=== PATIENT | male | born 1955 | race Caucasian/White ===

== ENCOUNTER 2017-03-26 06:24 | Day surgery (SDC) | payer OTHER ==
[~2017-03-26] VITALS: Ht 180.3 cm; Wt 152.0 kg
[~2017-03-26 06:24] MED LIST: AMARYL4 MG PO; AMLODIPINE BESY10 MG PO; ASPIRIN81 M1 PO; BENAZEPRIL-HCT1 EAC2 PO; CIPRO500 MG PO; FLAGYL500 MG PO; FUROSEMIDE40 MG PO; GLIMEPIRIDE2 MG PO; HUMULIN R500 UNIT/1 SC; JANUVIA100 MG PO; LASIX40 MG PO; LEVEMIR FL100 UNITS/ SC; LIPITOR40 MG PO; LOTENSIN40 MG PO; LOW DOSE ASPIRI81 M1 PO; LYRICA75 MG PO; MULTIPLE VITAM1 EACH PO; NORVASC5 MG PO; PEPTO BISMOL262 MG PO; PERCOCET 5/31 TABLET PO; PROTONIX40 MG PO; TESTOSTERO200 MG/11 IM; TESTOSTERONE 100 MG IM; VALIUM2 MG PO; VITAMIN B122500 MCG PO
[2017-03-26 07:26] LABS: POINT-OF-CARE METER ID UU13113694
[2017-03-26] MEDS ORDERED: AMARYL2 MG PO (07:26)
[2017-03-26] MEDS ORDERED: OPANA ER10 MG PO (07:27)
[2017-03-26 07:32] VITALS: BP 169/72
[2017-03-26 09:50] LABS: POINT-OF-CARE METER ID UU13113675
[2017-03-26 10:26] VITALS: BP 153/86
[2017-03-26 11:24] VITALS: BP 131/68
== END 2017-03-26 11:35 | disposition home or self-care (01) ==
LOC: SDC
PROVIDERS: Podiatrist Foot & Ankle Surgery
PROC: 0QBQ0ZZ Excision of Right Toe Phalanx, Open Approach (ICD-10-PCS; principal; 2017-03-26)
DX: M89.371 Hypertrophy of bone, right ankle and foot (principal); E11.621 Type 2 diabetes mellitus with foot ulcer; L97.511 Non-pressure chronic ulcer of other part of right foot limited to breakdown of skin; E11.40 Type 2 diabetes mellitus with diabetic neuropathy, unspecified; E11.65 Type 2 diabetes mellitus with hyperglycemia; E66.01 Morbid (severe) obesity due to excess calories; Z68.42 Body mass index [BMI] 45.0-49.9, adult; I10 Essential (primary) hypertension; E11.319 Type 2 diabetes mellitus with unspecified diabetic retinopathy without macular edema; G47.33 Obstructive sleep apnea (adult) (pediatric); K21.9 Gastro-esophageal reflux disease without esophagitis; E78.00 Pure hypercholesterolemia, unspecified; Z79.4 Long term (current) use of insulin; Z87.891 Personal history of nicotine dependence; Z79.82 Long term (current) use of aspirin; Z82.62 Family history of osteoporosis; Z83.3 Family history of diabetes mellitus
CPT/HCPCS: 82948; 87070; 87075; 87205; J0131; J0690; J1100; J1885; J2250; J2405; J3010; S0020

== ENCOUNTER → 2017-09-28 | Outpatient (CLI) | payer OTHER ==
[~2017-09-28] VITALS: Ht 180.3 cm; Wt 155.5 kg
[~2017-09-28] MED LIST changes: +AMARYL2 MG PO; +FUROSEMIDE20 MG PO; +LYRICA100 MG PO; +OPANA ER10 MG PO
== END | disposition home or self-care (01) ==
LOC: AMB 09:30
PROVIDERS: Internal Medicine
DX: R15.9 Full incontinence of feces (principal); D12.2 Benign neoplasm of ascending colon; D12.3 Benign neoplasm of transverse colon; D12.5 Benign neoplasm of sigmoid colon; K62.1 Rectal polyp; K64.8 Other hemorrhoids; I10 Essential (primary) hypertension; E11.9 Type 2 diabetes mellitus without complications; M79.1 Myalgia; K21.9 Gastro-esophageal reflux disease without esophagitis; J45.909 Unspecified asthma, uncomplicated; G47.30 Sleep apnea, unspecified; Z87.891 Personal history of nicotine dependence; K58.9 Irritable bowel syndrome, unspecified; Z79.84 Long term (current) use of oral hypoglycemic drugs; Z79.82 Long term (current) use of aspirin; Z88.8 Allergy status to other drugs, medicaments and biological substances; Z91.018 Allergy to other foods
CPT/HCPCS: 82948; 88305; 93005; J2250; J3010

== ENCOUNTER 2017-12-04 09:28 | Emergency (ER) | payer OTHER ==
[~2017-12-04] VITALS: Ht 180.3 cm; Wt 160.9 kg
[2017-12-04 12:47] LABS: HEMATOCRIT 43.2 % (38.0-50.0); HEMOGLOBIN 15.1 G/DL (12.5-16.6); MCV 88.7 FL (86-99); PLATELET COUNT 203 K/uL (156-360); RBC DIS.WIDTH-SD 42.2 % (39-53); RED BLOOD COUNT 4.87 M/uL (4.00-5.50); WHITE BLOOD COUNT 8.8 K/uL (4.1-10.2)
[2017-12-04 12:55] LABS: CHLORIDE 104 mEq/L (99-109); POTASSIUM 4.2 mEq/L (3.7-5.4); SODIUM 141 mEq/L (136-147)
[2017-12-04 12:56] LABS: GLUCOSE 207 mg/dL (70-99)
[2017-12-04 13:00] LABS: CREATININE 0.8 mg/dL (0.6-1.3); GFR ESTIMATE (CALCULATED) > 59 mL/min/ (58.99-99999)
[2017-12-04 13:01] LABS: UREA NITROGEN (BUN) 15 mg/dL (9-23)
[2017-12-04] MEDS ORDERED: LASIX20 MG PO (13:22)
[2017-12-04 13:40] VITALS: BP 184/82
== END 2017-12-04 13:40 | disposition home or self-care (01) ==
LOC: EME 09:28
PROVIDERS: Emergency Medicine
DX: R60.0 Localized edema (principal); E11.65 Type 2 diabetes mellitus with hyperglycemia; J45.909 Unspecified asthma, uncomplicated; F32.9 Major depressive disorder, single episode, unspecified; Z79.82 Long term (current) use of aspirin; Z79.4 Long term (current) use of insulin; Z98.890 Other specified postprocedural states; Z87.09 Personal history of other diseases of the respiratory system; Z88.8 Allergy status to other drugs, medicaments and biological substances
CPT/HCPCS: 80048; 85027; 99281; 99284

== ENCOUNTER → 2017-12-17 | Outpatient (CLI) | payer OTHER ==
[~2017-12-17] MED LIST changes: +LASIX20 MG PO
== END | disposition home or self-care (01) ==
LOC: EKG 12:38
DX: I51.7 Cardiomegaly (principal); I07.1 Rheumatic tricuspid insufficiency; I27.20 Pulmonary hypertension, unspecified
CPT/HCPCS: 93306